=== PATIENT | female | born 1975 | race Two or more races ===

== ENCOUNTER 2019-05-11 08:08 | Outpatient (CLI) | payer OTHER | END 2019-05-11 08:19 | disposition home or self-care (01) | LOC: RAD 08:08 | DX: D25.9 Leiomyoma of uterus, unspecified (principal); Z01.811 Encounter for preprocedural respiratory examination; R97.1 Elevated cancer antigen 125 [CA 125]; N39.0 Urinary tract infection, site not specified ==